=== PATIENT | female | born 1995 | race Caucasian/White ===

== ENCOUNTER 2019-02-13 20:37 | Outpatient (CLI) | payer BC ==
[2019-02-13 21:24] LABS: APPEARANCE,URINE CLEAR; BILIRUBIN,URINE NEGATIVE (NEGATIVE); COLOR,URINE STRAW; GLUCOSE, URINE NEGATIVE (NEGATIVE); KETONES,URINE NEGATIVE (NEGATIVE); LEUKOCYTE ESTERASE,URINE NEGATIVE (NEGATIVE); NITRITE,URINE NEGATIVE (NEGATIVE); PROTEIN,URINE NEGATIVE (NEGATIVE); URINE SPECIFIC GRAVITY 1.003; UROBILINOGEN,URINE NEGATIVE mg/dL (<2.0)
[2019-02-13 22:11] LABS: URINE AMPHETAMINES SCREEN NEGATIVE; URINE BARBITURATES SCREEN NEGATIVE; URINE BENZODIAZEPINES SCREEN NEGATIVE; URINE COCAINE SCREEN NEGATIVE; URINE MARIJUANA (THC) SCREEN NEGATIVE; URINE PHENCYCLIDINE SCREEN NEGATIVE
[2019-02-13 22:16] LABS: URINE METHADONE SCREEN NEGATIVE
== END 2019-02-13 21:53 | disposition home or self-care (01) ==
LOC: LC 20:37
PROVIDERS: ATTEND Student in an Organized Health Care Education/Training Program
PROC: 4A1HXCZ Monitoring of Products of Conception, Cardiac Rate, External Approach (ICD-10-PCS; principal; 2019-02-13)
DX: O47.02 False labor before 37 completed weeks of gestation, second trimester (principal); Z3A.27 27 weeks gestation of pregnancy
CPT/HCPCS: 80307; 81001

== ENCOUNTER 2019-05-03 15:00 | Inpatient (IN) | payer BC ==
[2019-05-03 15:30] LABS: APPEARANCE,URINE SLIGHTLY-CLOUDY; BILIRUBIN,URINE NEGATIVE (NEGATIVE); COLOR,URINE YELLOW; GLUCOSE, URINE NEGATIVE (NEGATIVE); KETONES,URINE NEGATIVE (NEGATIVE); LEUKOCYTE ESTERASE,URINE SMALL (NEGATIVE); NITRITE,URINE NEGATIVE (NEGATIVE); PROTEIN,URINE NEGATIVE (NEGATIVE); URINE SPECIFIC GRAVITY 1.009; UROBILINOGEN,URINE NEGATIVE mg/dL (<2.0)
[2019-05-03 15:50] LABS: URINE AMPHETAMINES SCREEN NEGATIVE; URINE BARBITURATES SCREEN NEGATIVE; URINE BENZODIAZEPINES SCREEN NEGATIVE; URINE COCAINE SCREEN NEGATIVE; URINE MARIJUANA (THC) SCREEN NEGATIVE; URINE METHADONE SCREEN NEGATIVE; URINE PHENCYCLIDINE SCREEN NEGATIVE
[2019-05-03] MEDS ORDERED: RINGERS SOLUTION,LACTATED 1,000 ML IV PRN (15:54)
[2019-05-03] MEDS ORDERED: RINGERS SOLUTION,LACTATED 1,000 ML IV ONE (15:54)
--- NOTE | 2019-05-03 16:04 | Admission Physical ---
Datetime Report Generated by CPN: 05/03/2019 16:04 CURRENT ADMISSION Chief Complaint: Suspected Ruptured Membranes Admit Impression : Term, Intrauterine ; No Active Labor; Ruptured Membranes Admit Plan: Admit to Unit; Initiate Labor Protocol ALLERGIES Medication Allergies: No Medication Allergies: No Known Allergies (02/13/2019) Latex: No Latex Allergies OBSTETRICAL HISTORY EDC: 05/12/2019 00:00 : 1 Para: 0 Term: 0 : 0 SAB: 0 IAB: 0 Ectopic: 0 Livin Cesareans: 0 VBACs: 0 Multiple Births: 0 Gestational Diabetes: No Rh Sensitization: No Incompetent Cervix: No ANTHONY: No Infertility: No ART Treatment: No Uterine Anomaly: No IUGR: No Hx Previous C/S: No Macrosomia: No Hx Loss/Stillborn: No PIH: No Hx : No Placenta Previa/Abruption: No Depression/PP Depression: No PTL/PROM: No Post Hemorrhage: No Current Procedures: Ultrasound Obstetrical History Comments: G1- current SEE RECORDS Alcohol: No Marijuana : No Cocaine: No Other Illicit Drugs: No Cigarettes: Never Smoker. 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 Heart Disease: No Hosp/Surgery: No Autoimmune Disorder: No Anesthetic Complications: No Kidney Disease: No Abnormal Pap Smear: No Neuro/Epilepsy: No Psychiatric Disorders: No Other Medical Diseases: No Hepatitis/Liver Disease: No Significant Family History: No Varicosities/Phlebitis: No Trauma/Violence : No Thyroid Dysfunction: No INFECTIOUS HISTORY Gonorrhea: No Genital Herpes: No Chlamydia: No Tuberculosis: No Syphilis: No Hepatitis: No HIV/AIDS Exposure: No Rash or Viral Illness: No HPV: No PHYSICAL EXAM General: Normal HEENT: Normal Neurologic: Normal Thyroid: Normal Heart: Normal Lungs: Normal Breast: Normal Back: Normal Abdomen: Normal Genitourinary Exam: Normal Extremities: Normal DTRs: Normal Pelvic Type: Adequate Vital Signs: Reviewed; Within Normal Limits MEMBRANES Membranes: Ruptured Amniotic Fluid Color: Clear FETUS A EGA: 38.5 Monitoring: External US FHR- Baseline: 140 Variability: Moderate 6-25bpm Accelerations: 10X10 Decelerations: None Admit Comment: Pt presents from the office with c/o leaking amniotic fluid starting at 12:30 today. +actiprom indicates she is ruptured. VE 1/80/0 w/ posterior cervix. Vtx, EFW 7 lbs via [place]. Pt to eat since she has not had anything since 0200 am. Then desires to ambulate. If no increase in her contractions, then will probably augment with Pitocin. GBS negatiave. Attending MD is Dr Hurtado PLANS FOR LABOR AND DELIVERY Labor and Delivery: None Pain Management: Natural Feeding Preference: Breast Benefit of Breast Feed Discussed: Yes Circumcision: No INFORMED CONSENT Assignment: Marian Saavedra MD Signature: with User ID: [email or web address] : with User ID: [email or web address]
[2019-05-03] MEDS ORDERED: OXYTOCIN 10 UNIT/ML VIAL ONE (16:05)
[2019-05-03] MEDS ORDERED: LIDOCAINE 1% INJ-PF (10 MG/ML) 30 ML SDV ONE (16:05)
[2019-05-03] MEDS ORDERED: MISOPROSTOL 0.2 MG TABLET ONE (16:05)
[2019-05-03] MEDS ORDERED: OXYTOCIN/NORMAL SALINE 20 UNIT/1,000 ML RTUINJ ONE (16:06)
[2019-05-03 16:16] LABS: ABSOLUTE EOSINOPHILS # (AUTO) 0.1 10^3/uL (0.0-0.6); ABSOLUTE LYMPHOCYTES (AUTO) 1.6 10^3/uL (0.5-4.7); ABSOLUTE MONOCYTES (AUTO) 0.8 10^3/uL (0.1-1.4); ABSOLUTE NEUT (AUTO) 9.3 10^3/uL (1.7-8.2); BASOPHILS % (AUTO) 0.1 % (0-2); EOSINOPHILS % (AUTO) 0.6 % (0-6); HEMATOCRIT 35.6 % (36.0-47.0); HEMOGLOBIN 12.1 g/dL (12.0-15.5); LYMPHOCYTES % (AUTO) 13.5 % (13-45); MEAN CORPUSCULAR HEMOGLOBIN 30.1 pg (27.0-33.4); MEAN CORPUSCULAR HGB CONC 34.1 g/dL (32.0-36.0); MEAN CORPUSCULAR VOLUME 88 fl (80-97); MONOCYTES % (AUTO) 6.9 % (3-13); PLATELET COUNT 211 10^3/uL (150-450); RED BLOOD COUNT 4.04 10^6/uL (3.72-5.28); RED CELL DISTRIBUTION WIDTH 16.2 % (11.5-14.0); SEGMENTED NEUTROPHILS % (AUTO) 78.9 % (42-78); TOTAL CELLS COUNTED % (AUTO) 100 %; WHITE BLOOD COUNT 11.7 10^3/uL (4.0-10.5)
[2019-05-03] MEDS ORDERED: OXYTOCIN/NORMAL SALINE 20 UNIT/1,000 ML RTUINJ IV PRN (16:55)
[2019-05-04] MEDS ORDERED: EPHEDRINE SULFATE INJ 50 MG/1 ML AMPULE ONE (06:01)
[2019-05-04] MEDS ORDERED: BUPIVACAINE HCL 0.25 % INJ/PF (2.5 MG/1 ML) 30 ML VIAL ONE (06:01)
[2019-05-04] MEDS ORDERED: FENTANYL/BUPIVACAINE/NS/PF 300 MCG/150 ML RTUINJ EPI ONE (06:01)
[2019-05-04] MEDS ORDERED: FENTANYL/BUPIVACAINE/NS/PF 200 MCG/100 ML RTUINJ EPI PRN (06:08)
[2019-05-04] MEDS ORDERED: BENZOIN/ALOE VERA/STORAX/TOLU TINCTURE 60 ML TP PRN (06:08)
[2019-05-04] MEDS ORDERED: BUPIVACAINE HCL 0.25 % INJ/PF (2.5 MG/1 ML) 30 ML VIAL INFIL ONE (06:08)
[2019-05-04] MEDS ORDERED: GLYCERIN/WITCH HAZEL LEAF 1 EACH MED..WIPE TP PRN (12:39)
[2019-05-04] MEDS ORDERED: OXYTOCIN/NORMAL SALINE 20 UNIT/1,000 ML RTUINJ IV PRN (12:39)
[2019-05-04] MEDS ORDERED: MAGNESIUM HYDROXIDE SUSP 30 ML UDCUP PO PRN (12:39)
[2019-05-04] MEDS ORDERED: PROMETHAZINE HCL 25 MG SUPP.RECT PR PRN (12:39)
[2019-05-04] MEDS ORDERED: ACETAMINOPHEN WITH CODEINE #3 TABLET PO PRN ×2 (12:39)
[2019-05-04] MEDS ORDERED: DIPH/PERTUSS(ACELL)/TETANUS VAC/PF 0.5 ML SYR (>=10YO) IM PRN (12:39)
[2019-05-04] MEDS ORDERED: ACETAMINOPHEN 650 MG SUPP.RECT PR PRN (12:39)
[2019-05-04] MEDS ORDERED: DIPHENHYDRAMINE HCL 25 MG CAPSULE PO PRN (12:39)
[2019-05-04] MEDS ORDERED: PSEUDOEPHEDRINE HCL 30 MG TABLET PO PRN (12:39)
[2019-05-04] MEDS ORDERED: PROMETHAZINE HCL 25 MG TABLET PO PRN (12:39)
[2019-05-04] MEDS ORDERED: DIBUCAINE 1% OINTMENT 56 GM TP PRN (12:39)
[2019-05-04] MEDS ORDERED: MEASLES,MUMPS&RUBELLA VACC/PF 0.5 ML VIAL SUBCUT PRN (12:39)
[2019-05-04] MEDS ORDERED: NA PHOS,M-B/NA PHOS,DI-BA (ADULT) 133 ML ENEMA PR PRN (12:39)
[2019-05-04] MEDS ORDERED: PROMETHAZINE HCL INJ 25 MG/1 ML VIAL IV PRN (12:39)
[2019-05-04] MEDS ORDERED: ZOLPIDEM TARTRATE 5 MG TABLET PO PRN (12:39)
[2019-05-04] MEDS ORDERED: BENZOCAINE/MENTHOL AEROSOL SPRAY 56 ML TOP PRN (12:39)
--- NOTE | 2019-05-04 14:11 | Delivery Summary ---
Del Sum A-C Datetime Report Generated by CPN: 05/04/2019 14:11 DELIVERY PERSONNEL DELIVERY PERSONNEL: [id number] Delivery Doctor:: Sandy Looney CNM Labor and Delivery Nurse:: Areli Velez RNsenior sql dba Nurse:: Vilma Carlton RN Nursery Nurse:: Shaila Dela Cruz RN Nursery Nurse:: Moreno BOOTH RN Pump House Operator/RESIDENTIAL FINISH CARPENTER: Dianafranklin Basilio, JEWELRY SALES ASSOCIATE MATERNAL INFORMATION Delivery Anesthesia: Epidural Medications After Delivery: Pitocin Bolus-Please Comment Meds After Delivery Comment: pitocin 20 units in 1 L NS bolusing per order Estimated Blood Loss (ml): 400 Delivery QBL: 400 Maternal Complications: Other Complication Details: PROLONGED ROM- 05/03/2019 @ 1230 Provider Comments: of live female in vertex OA to [place]. Loose nuchal cord-reduced. Vertex delivered, then shoulders and body delivered 40 sec later at 1159. Cord wrapped around body and legs. Cord immediately clamped x2, then cut as baby limp, pale, and not crying. Baby placed in warmer, where 2 RNs from nursery dried and stimulated baby. Candice maneuver and attempted to rotate anterior shoulder. Placenta, membranes, and cord delivered at 1212, [place]. Perineum inspected, several abraisions, hemostasis achieved with pressure. Patient tolerated procedure well. FF at U-3. LABOR SUMMARY EDC: 05/12/2019 00:00 No. Babies in Womb: 1 Attempted: No Labor Anesthesia: Epidural LABOR INFORMATION Reason for Induction: Not Applicable Onset of Labor: 05/04/2019 04:30 Complete Dilatation: 05/04/2019 09:06 Oxytocin: Augmentation Group B Beta Strep: negative Antibiotics # of Doses: 0 Steroids Given: None Reason Steroids Not Administered: Not Applicable MEMBRANES Membranes Rupture Method: Spontaneous Rupture of Membranes: 05/03/2019 12:30 Length of Rupture (hr): 23.48 Amniotic Fluid Color: Clear Amniotic Fluid Amount: Moderate Amniotic Fluid Odor: Normal STAGES OF LABOR Stage 1 hr: 4 Stage 1 min: 36 Stage 2 hr: 2 Stage 2 min: 53 Stage 3 hr: 0 Stage 3 min: 13 Total Time in Labor hr: 7 Total Time in Labor min: 42 VAGINAL DELIVERY Episiotomy: None Laceration #1: None Laceration Extension #1: N/A Other Laceration: SUPERFICIAL ABRASIONS Laceration Repair: Not Applicable Sponge Count Correct: N/A Sharps Count Correct: Yes CSECTION DELIVERY Primary Indication: N/A Secondary Indication: N/A CSection Incidence: N/A Labor: N/A Elective: N/A CSection Incision: N/A BABY A INFORMATION Delivery Date/Time: 05/04/2019 11:59 Method of Delivery: Vaginal Born in Route : No : N/A Forceps: N/A Vacuum Extraction: N/A Shoulder Dystocia : No PRESENTATION/POSITION BABY A Presentation: Cephalic Cephalic Presentation: Vertex Vertex Position: Right Occipital Anterior Breech Presentation: N/A PLACENTA INFORMATION BABY A Placenta Delivery Time : 05/04/2019 12:12 Placenta Method of Delivery: Expressed Placenta Status: Delivered SCORES BABY A Heart Rate 1 min: >100 bpm Resp Effort 1 min: Absent Reflex Irritability 1 min: Grimace Muscle Tone 1 min: Some Flexion of Extremities Color 1 min: Body Wald[place], Extremities Blue SCORE 1 MIN: 5 Heart Rate 5 min: >100 bpm Resp Effort 5 min: Good Cry Reflex Irritability 5 min: Cough or Sneeze or Pulls Away Muscle Tone 5 min: Some Flexion of Extremities Color 5 min: Body [place], Extremities Blue SCORE 5 MIN: 8 Heart Rate 10 min: >100 bpm Resp Effort 10 min: Good Cry Reflex Irritability 10 min: Cough or Sneeze or Pulls Away Muscle Tone 10 min: Active Motion Color 10 min: Body [place], Extremities Blue Resuscitation Effort 10 min: Tactile Stimulation; Oxygen SCORE 10 MIN: 9 INFANT INFORMATION BABY A Gestational Age at Delivery: 38.6 Gestational Status: Early Term- 37- 38.6 Weeks Outcome : Liveborn Condition : Stable Infant Sex: Female IDENTIFICATION BABY A Infant Verification Date/Time: 05/04/2019 12:39 ID Band Number: [id number] Mother's Name Verified: Yes RN Verifying Infant: C. Ancram RN J. Field, RN WEIGHT/LENGTH BABY A Birthweight (gm): 3825 Infant Weight (lb): 8 Infant Weight (oz): 7 Infant Length (in): 21.00 Infant Length (cm): 53.34 CORD INFORMATION BABY A No. Cord Vessels: 3 Nuchal Cord : Around Neck x1, Loose Nuchal Cord- Other: BODY CORD Cord Blood Taken: Yes-For Eval (Mom's Blood Type - or O+) Suction: Mouth; Nose ASSESSMENT BABY A Infant Complications: Multiple Late Decels; Multiple Variable Decels; Other Infant Complications- Other: TERMINAL MECONIUM Physical Findings at Delivery: Caput Succedaneum Respirations: Appears Normal Skin to Skin: Yes Skin to Skin Time (min): 15 Medical Office Coordinator/ALS Called : No Care By: Timothy DELA CRUZ RN/ Moreno BOOTH RN Transferred To: Remains with Mother BABY B INFORMATION : N/A SIGNATURES Assignment: Makeda Laguna MD Signature: with User ID: [email or web address] : with User ID: [email or web address] : I personally evaluated and examined the patient in conjunction with the MLP and agree with the assessment, treatment plan and disposition.
[2019-05-04] MEDS: IBUPROFEN 800 MG TABLET PO SCH ×2 (15:24→21:10)
[2019-05-04] MEDS: DOCUSATE SODIUM 100 MG CAPSULE PO SCH (17:21)
[2019-05-04] MEDS: FERROUS SULFATE 325 MG TABLET PO SCH (17:21)
[2019-05-04] MEDS: FAMOTIDINE 20 MG TABLET PO SCH (21:10)
[2019-05-05] MEDS: IBUPROFEN 800 MG TABLET PO SCH ×3 (05:42→22:57)
[2019-05-05 07:32] LABS: HEMATOCRIT 28.7 % (36.0-47.0); MEAN CORPUSCULAR HEMOGLOBIN 30.7 pg (27.0-33.4); MEAN CORPUSCULAR HGB CONC 34.9 g/dL (32.0-36.0); MEAN CORPUSCULAR VOLUME 88 fl (80-97); PLATELET COUNT 156 10^3/uL (150-450); RED BLOOD COUNT 3.26 10^6/uL (3.72-5.28); RED CELL DISTRIBUTION WIDTH 16.2 % (11.5-14.0); WHITE BLOOD COUNT 10.4 10^3/uL (4.0-10.5)
--- NOTE | 2019-05-05 09:19 | PDOC PROGRESS REPORT ---
Subjective-OB Progress Note for:: 05/05/19 Physical Exam (OB) Vital Signs: Temp Pulse Resp BP Pulse Ox 98.1 F 89 16 124/71 99 05/05/19 08:00 05/05/19 08:00 05/05/19 08:00 05/05/19 08:00 05/05/19 08:00 Intake & Output 05/04/19 05/05/19 05/06/19 06:59 06:59 06:59 Intake Total 1999 Balance 1999 Weight 94.361 kg - General General Appearance: Appears well - Lochia Lochia Amount: Small 10-25 ml Lochia Color: Rubra/Red - Abdomen Description: Soft, Round Hernia Present: No Bowel Sounds: Normoactive Flatus Presence: Present Stool: No Fundal Description: Firm, Midline Fundal Height: u/u - u/2 - Respiratory Breath sounds: Clear - Abdominal Distension: No distension - Extremities Calf: Nontender Objective-Diagnostic Laboratory: 05/05/19 06:22 05/05/19 06:22 WBC 10.4 RBC 3.26 L Hgb 10.0 L D Hct 28.7 L MCV 88 MCH 30.7 MCHC 34.9 RDW 16.2 H Plt Count 156 Assessment and Plan(PN) Plan:: routine post care d/c in am - Time Spent with Patient Time with patient: Less than 15 minutes - Disposition Anticipated Discharge: Home Within: within 24 hours
[2019-05-05] MEDS: PRENATAL VITAMIN W DHA CAPSULE PO SCH (11:37)
[2019-05-05] MEDS: FERROUS SULFATE 325 MG TABLET PO SCH ×2 (11:37→21:51)
[2019-05-05] MEDS: SENNOSIDES/DOCUSATE 8.6-50 MG 1 EACH TABLET PO SCH (11:37)
[2019-05-05] MEDS: FAMOTIDINE 20 MG TABLET PO SCH ×2 (11:37→22:57)
[2019-05-05] MEDS: DOCUSATE SODIUM 100 MG CAPSULE PO SCH ×2 (11:37→21:50)
[2019-05-06 09:37] VITALS: BP 121/80
[2019-05-06] MEDS: DOCUSATE SODIUM 100 MG CAPSULE PO SCH (10:44)
[2019-05-06] MEDS: FAMOTIDINE 20 MG TABLET PO SCH (10:44)
[2019-05-06] MEDS: PRENATAL VITAMIN W DHA CAPSULE PO SCH (10:44)
[2019-05-06] MEDS: FERROUS SULFATE 325 MG TABLET PO SCH (10:44)
[2019-05-06] MEDS: SENNOSIDES/DOCUSATE 8.6-50 MG 1 EACH TABLET PO SCH (10:50)
[2019-05-06] MEDS: IBUPROFEN 800 MG TABLET PO SCH (11:41)
--- NOTE | 2019-05-06 11:46 | PDOC DISCHARGE SUMMARY ---
Final Diagnosis Discharge Date: 05/06/19 - Final Diagnosis (1) Normal vaginal delivery Is this a current diagnosis for this admission?: Yes Discharge Data - Discharge Medication Prescriptions: Ibuprofen [Motrin 800 mg Tablet] 800 mg PO Q8HP PRN #60 tablet PRN Reason: Home Medications: Pnv 102/Iron/Folate 1/Dss/Dha [Vitafol Fe+ Docusate Combo Pck] 1 tab PO DAILY 02/13/19 Sertraline HCl [Zoloft 50 mg Tablet] 50 mg PO DAILY 05/03/19 Ibuprofen [Motrin 800 mg Tablet] 800 mg PO Q8HP PRN #60 tablet 05/06/19 Procedures: NST Intrapartum Procedure(s): Spontaneous Vaginal Delivery - Diagnosis Test Laboratory: Temp Pulse Resp BP Pulse Ox 97.9 F 93 18 121/80 99 05/06/19 11:25 05/06/19 11:25 05/06/19 11:25 05/06/19 11:25 05/06/19 11:25 05/03/19 05/03/19 05/05/19 15:05 16:06 06:22 RBC 4.04 3.26 L Hgb 12.1 10.0 L D Hct 35.6 L 28.7 L Urine Opiates Screen NEGATIVE - Discharge information/Instructions Discharge Activity: Balance Activity w/Rest, No Lifting Over 10 Pounds, No Lifting/Push/Pulling, Pelvic Rest, No tub bath Discharge Diet: Regular Disposition: HOME, SELF-CARE Follow up with: [facility] in: 4, Weeks
== END 2019-05-06 14:19 | disposition home or self-care (01) | DRG 807 ==
LOC: LC 15:00 → LR 15:44 → 2S 05-04 14:22
PROVIDERS: ADMIT Obstetrics & Gynecology; ATTEND Obstetrics & Gynecology
PROC: 10E0XZZ Delivery of Products of Conception, External Approach (ICD-10-PCS; principal; 2019-05-04)
DX: O69.81X0 Labor and delivery complicated by cord around neck, without compression, not applicable or unspecified (principal); Z37.0 Single live birth; Z3A.38 38 weeks gestation of pregnancy
CPT/HCPCS: 36415; 80307; 81005; 84112; 85025; 85027; 86592; 86850; 86900; 86901; 88307; 94760; J2590; J3010; J3490